=== PATIENT | female | born 1955 ===

== ENCOUNTER 2023-12-13 06:58 | Inpatient (IN) | payer OTHER, SELFPAY ==
--- NOTE | 2023-11-11 10:54 | CM ---
Patient is scheduled for an elective R TKR on 12/13/23. Spoke with patient prior to surgery via telephone. Introduced role of Orthopedic Navigator. Patient reports that she lives with her in a one story home. There are one step to enter. She
currently functions independently. She has a cane. She has never had VN services. PCP is Dr. Montano.
Discussed orthopedic program and post surgical plans. Reviewed anticipated length of stay and that goal is for her to return home at discharge. Also reviewed outpatient PT. Patient is in agreement with tentative plan and will go directly to
outpatient PT at [facility]. She will have support from her when she goes home.
Patient will complete online education.
Plan: Orthopedic Navigator will remain available to assist with the care of patient and will reassess discharge needs after surgery.
[2023-11-25 12:18] VITALS: BMI 26.0
[2023-11-25 13:48] LABS: Hemoglobin 13.8 g/dL (12.0-16.0); Mean Corp Hgb Conc. 33.7 g/dL (33.0-37.0); Mean Corpuscular Hgb 29.6 pg (27.0-31.0); Mean Corpuscular Volume 87.8 fL (81.0-99.0); Platelet Count 194 10^3/uL (130-400); Red Blood Cell Count 4.67 10^6/uL (4.20-5.40); Red Cell Dist. Width 12.8 % (11.5-14.5); White Blood Cell Count 8.9 10^3/uL (4.8-10.8)
[2023-11-25 14:14] LABS: ALT (SGPT) 21 U/L (0-35); AST (SGOT) 28 U/L (14-36); Albumin 4.4 g/dl (3.5-5.0); Alkaline Phosphatase 62 U/L (38-126); Blood Urea Nitrogen 19 mg/dl (7-17); Calcium 9.9 mg/dl (8.4-10.2); Carbon Dioxide 24 mmol/L (22-30); Chloride 104 mmol/L (98-107); Estimated Creatinine Clearance 69 ml/min; Glucose 163 mg/dl (70-99); Potassium 4.7 mmol/L (3.5-5.1); Sodium 136 mmol/L (135-145); Total Bilirubin 0.5 mg/dl (0.2-1.3); Total Protein 6.8 g/dl (6.3-8.2); eGFR > 60.00
[2023-11-25 16:01] VITALS: BMI 26.0
[2023-11-26 09:11] LABS: Glycohemoglobin (HgbA1c) 5.7 % (4.0-5.6)
[2023-12-13] VITALS (15 sets, daily range): BP systolic 114–160; BP diastolic 69–99; PULSE 66; O2SAT 98; BMI 26.0; BMI 28.6
[2023-12-13] MEDS: TYLENOL 650 MG PO ×4 (07:30→19:31)
[2023-12-13] MEDS: NORMOSOL-R 1000 IV ×2 (07:31→12:30)
[2023-12-13] MEDS: CELEBREX 200 MG PO (07:31)
--- NOTE | 2023-12-13 13:13 | PTCARENOTE ---
Pt arrived to [facility] from PACU s/p R TKR. NV R DP weak on palpation and present with doppler, L DP present, sensation intact. R knee aquacel with small amount of drainage. IVF infusing. Pt states no pain at this time. Oriented to call greer and
room, bed locked in lowest position, call greer within reach.
[2023-12-13] MEDS: TYLENOL PO (13:31)
[2023-12-13] MEDS: ROXICODONE 10 MG PO ×2 (16:46→20:46)
[2023-12-13] MEDS: ANCEF 5 IV (17:04)
[2023-12-13] MEDS: ASPIRIN 325 MG PO (17:04)
[2023-12-13] MEDS: COLACE 100 MG PO (19:30)
[2023-12-13] MEDS: SENOKOT 17.1999999999999993 MG PO (19:30)
[2023-12-13] MEDS: BACTROBAN 2% OINTMENT 1 APPLIC NASAL (19:30)
[2023-12-13] MEDS: TORADOL 15 MG IV (19:30)
[2023-12-13] MEDS: DECADRON 4 MG PO (19:31)
[2023-12-13] MEDS: NEURONTIN 300 MG PO (21:05)
[2023-12-14] MEDS: TYLENOL PO ×2 (00:17→04:46)
[2023-12-14] MEDS: ANCEF 5 IV (01:21)
[2023-12-14] MEDS: ROXICODONE 10 MG PO (01:21)
[2023-12-14 04:06] VITALS: BP 117/64
[2023-12-14 07:50] VITALS: BP 146/81
[2023-12-14] MEDS: SENOKOT 17.1999999999999993 MG PO (08:20)
[2023-12-14] MEDS: ASPIRIN 325 MG PO (08:20)
[2023-12-14] MEDS: DECADRON 4 MG PO (08:21)
[2023-12-14] MEDS: TYLENOL 650 MG PO ×2 (08:21→11:37)
[2023-12-14] MEDS: COLACE 100 MG PO (08:21)
[2023-12-14] MEDS: TORADOL 15 MG IV (08:21)
[2023-12-14] MEDS: CELEBREX 200 MG PO (08:21)
[2023-12-14] MEDS: BACTROBAN 2% OINTMENT 1 APPLIC NASAL (08:21)
[2023-12-14] MEDS: ZOFRAN 4 MG IV (08:21)
[2023-12-14] MEDS: ROXICODONE 5 MG PO (08:22)
--- NOTE | 2023-12-14 08:44 | CM ---
Reviewed chart and held rounds with PT, OT and nursing. Patient admitted as planned for elective R TKR. Met with patient at bedside. Confirmed information previously obtained for assessment. Also discussed discharge plans. The plan is for patient to
return home at discharge. She will have support from her when she goes home. Patient will go directly to outpatient PT and will go to [facility]. She has an appointment scheduled for Wednesday, 12/14.
Patient has a rolling walker, cane and shower seat.
She will use [facility] pharmacy for discharge prescriptions.
[2023-12-14 09:41] VITALS: BP 126/69; PULSE 61; O2SAT 98
--- NOTE | 2023-12-14 11:06 | W.PN.ORTHO ---
Today's Communication / Plan
-
d/c
Assessment
.
Distal Motor Intact: Yes
Dressing:
Clean, dry and intact.
Plan
.
Surgery / Date: Rikki Pope 12/13/23
DVT Prophylaxis: Aspirin
Activity:
Out of bed.
PT/OT
Discharge Plan: Home w/ Outpatient PT
Subjective
.
.:
Patient resting comfortably.
Vital Signs and Labs
.
Vital Signs and Labs:
Lab Results
11/25/23 12:09
11/25/23 12:09
Temp Pulse Resp BP Pulse Ox
98.1 F 71 18 146/81 97
12/14/23 07:50 12/14/23 07:50 12/14/23 07:50 12/14/23 07:50 12/14/23 07:50
Non-invasive Hgb result: 10.8
Physical Exam
-
HEENT: No pallor, cyanosis, or jaundice. Throat clear.
NECK: Supple. No JVD.
RESPIRATORY: Lungs clear to auscultation.
CVS: S1, S2 normal. RRR.� No murmur, rub or gallop.
ABDOMEN: Soft, non-tender. No distension. BS+/normal.
EXTREMITIES: strength equal, no calf pain with palpation
RADIOTELEGRAPHIST: AOx3. No focal deficits. general accounting manager grossly intact
--- NOTE | 2023-12-14 11:13 | W.DS.TRANS ---
DC Summary - Instrument Repair Technician
-
Discharge Instructions:
Sleep Apnea Risk Low
Discharge Diagnosis/Procedures R TKA Dr. Pope 12/13/23
Diet As tolerated
Activity With Walker
Driving Restrictions No driving
Bathing Restrictions OK to Shower
Other Services PT
Instructions:
Stand-Alone Forms: Total Hip/Knee Replacement D/C
Changes to Home Medications: Yes
Discharge Medications:
DC Medications w/original date entered in [employer]
Beet Root 4 cap PO DAILY Supplement 11/22/23
Calcium Microcrystalline [place] 1 dose PO DAILY Supplement 11/22/23
Cardio For Life 1 dose PO DAILY Supplement 11/22/23
[place] Stone Clearing Formula 3 cap PO DAILY Supplement 11/22/23
Cholacol 1 dose PO BID Supplement 11/22/23
Gb-6 Gallbladder & Liver Suppo 3 cap PO DAILY Supplement 11/22/23
[place] Enzymes Formula 18 2 cap PO TID Supplement 11/22/23
[place] Calcium 1 dose PO BID Supplement 11/22/23
Ostinol Bone And Joint Supplem 1 cap PO DAILY Supplement 11/22/23
Serrapeptase 1 dose PO DAILY Supplement 11/22/23
soybean, fermented 50 mg capsule (Nattokinase) 100 mg PO DAILY Supplement 11/22/23
mupirocin 2 % topical ointment 1 applic topical BID infection prevention #1 tube 11/25/23
acetaminophen 325 mg capsule (Tylenol) 650 mg (2 x 325 mg) PO QID #2 caps 12/14/23
aspirin 325 mg tablet 325 mg PO DAILY blood clot prevention #1 tab 12/14/23
docusate sodium 100 mg capsule (Colace) 100 mg PO BID stool softner #1 cap 12/14/23
famotidine 20 mg tablet 20 mg PO HS GI prophylaxis #30 tabs 12/14/23�
gabapentin 300 mg capsule 300 mg PO HS sleep/pain #10 caps 12/14/23�
magnesium hydroxide 400 mg/5 mL oral suspension (Milk of Magnesia) 30 ml PO HS PRN Constipation #1 mL 07/02/24�
meloxicam 15 mg tablet 15 mg PO DAILY anti-inflammatory #14 tabs 12/14/23�
ondansetron 4 mg disintegrating tablet 4 mg PO Q6H PRN n/v #20 tabs 12/14/23�
oxycodone 5 mg tablet 5 mg PO Q6H PRN 1 tab moderate pain, 2 tabs severe pain #30 tabs 12/14/23�
prednisone 10 mg tablet 40 mg (4 x 10 mg) PO TAPER inflammation #20 tabs 12/14/23�
sennosides 8.6 mg tablet (Senokot) 17.2 mg (2 x 8.6 mg) PO BID laxative #2 tabs 12/14/23
Home Medication Changes
famotidine 20 mg tablet 20 mg PO HS GI prophylaxis #30 tabs 12/14/23�
gabapentin 300 mg capsule 300 mg PO HS sleep/pain #10 caps 12/14/23�
meloxicam 15 mg tablet 15 mg PO DAILY anti-inflammatory #14 tabs 12/14/23�
ondansetron 4 mg disintegrating tablet 4 mg PO Q6H PRN n/v #20 tabs 12/14/23�
oxycodone 5 mg tablet 5 mg PO Q6H PRN 1 tab moderate pain, 2 tabs severe pain #30 tabs 12/14/23�
prednisone 10 mg tablet 40 mg (4 x 10 mg) PO TAPER inflammation #20 tabs 12/14/23�
Pending Results: No
[2023-12-14 11:20] VITALS: BP 117/68
[2023-12-14 12:50] VITALS: BP 128/67; PULSE 65; O2SAT 100
== END 2023-12-14 13:47 | disposition home or self-care (01) | DRG 470 ==
LOC: 2 SOUTH 06:58
PROVIDERS: ADMITTING PHYSICIAN Specialist; FAMILY PHYSICIAN Family Medicine
PROC: XNH New Technology, Bones, Insertion (ICD-10-PCS; 2023-12-13)
PROC: 0SRC0J9 Replacement of Right Knee Joint with Synthetic Substitute, Cemented, Open Approach (ICD-10-PCS; 2023-12-13)
DX: M17.11 Unilateral primary osteoarthritis, right knee (principal)
CPT/HCPCS: 36415; 73560; 80053; 83036; 85027; 87070; 93005; 97110; 97116; 97161; 97166; C1713; C1776